=== PATIENT | female | born 1945 | race Caucasian/White ===

== ENCOUNTER 2016-08-01 13:40 | Day surgery (SDC) | payer MEDICARE ==
[~2016-08-01 13:40] MED LIST: CEFAZOLIN 2 Gram 2 GM/50 ML BAG IVPB ONE
[2016-08-01 13:55] LABS: BASO % 0.3 % (0-6); GRAN % 63.5 % (47-80); HEMATOCRIT 42.5 % (35.0-47.0); HEMOGLOBIN 13.8 gm/dl (11.6-16.0); LYMPH % 23.5 % (16-45); MEAN CORPUSCULAR HEMOGLOBIN 29.6 pg (27-33); MEAN CORPUSCULAR HGB CONC 32.5 g/dl (32-36); MEAN PLATELET VOLUME 9.3 fl (7.4-10.4); MONO % 9.7 % (0-9); PLATELET COUNT 217 K/uL (130-400); RED BLOOD COUNT 4.67 M/uL (3.80-5.40); RED CELL DISTRIBUTION WIDTH 12.6 % (11.5-14.5); WHITE BLOOD COUNT W/O DIFF 6.7 K/uL (4.2-12.2)
[2016-08-01] MEDS ORDERED: ONDANSETRON HCL IV 4 MG/2 ML VIAL IVP ONE (14:00)
[2016-08-01] MEDS ORDERED: PROPOFOL 10 MG/ML VIAL IV ONE (14:00)
[2016-08-01 14:17] LABS: ANION GAP 4.6 (7-16); BLOOD UREA NITROGEN 17 mg/dL (7-17); CARBON DIOXIDE 29.4 mmol/L (22-30); CREATININE 0.7 mg/dL (0.52-1.04); EST GLOMERULAR FILTRATION RATE > 60 ml/min; GLUCOSE,RANDOM 107 mg/dL (70-110)
--- NOTE | 2016-08-03 08:30 | Operative Note ---
DATE OF SURGERY: 08/01/2016. 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 POSTOPERATIVE DIAGNOSIS: Bladder tumor of the dome. OPERATION: Cystoscopy and transurethral resection of bladder tumor 1 cm. Anesthesia: General. Indication: A 71-year-old female who was found to have a bladder tumor at the dome of the bladder on recent cystoscopy. As such, she presents for further management with removal of the tumor today. We discussed the potential risks of infection, bleeding, bladder perforation, recurrence of tumors, and iatrogenic injury. She understands all the above and wished to proceed. PROCEDURE: Preop informed consent was obtained. Antibiotics were given. Sedation was administered. The patient was brought to the operating room and given general anesthetic, carefully placed in lithotomy position with the genitalia prepped and draped sterilely. Visual inspection of the introitus shows that she has significant rectocele. There is mild cystocele formation. Bladder was entered and inspected systematically. Ureteral orifices were normal in appearance and position. There is a roughly 1 cm papillary bladder tumor seen at the dome of the bladder, and this was then removed carefully with the resectoscope, and the tumor was passed off the field for pathology. Careful cautery was then used to achieve excellent hemostasis. The entire tumor bed was then controlled, and the bladder was then irrigated out several times. Urine was completely clear at the end of the procedure, and she was awakened and transferred to recovery in stable condition. DISCHARGE INSTRUCTIONS: Follow up in the office to review pathology results in 2 weeks. Faheem Gibbons M.D. CC: Magdalene Page MD [facility]
== END 2016-08-01 17:51 | disposition home or self-care (01) ==
LOC: SUR 13:40
PROVIDERS: ATTEND Urology
DX: D49.4 Neoplasm of unspecified behavior of bladder (principal); I10 Essential (primary) hypertension
CPT/HCPCS: 80048; 85025; J2405

== ENCOUNTER 2016-11-14 13:06 | Day surgery (SDC) | payer MEDICARE ==
--- NOTE | 2016-11-21 14:10 | Operative Note ---
DATE OF SURGERY: 11/14/2016 PREOPERATIVE DIAGNOSIS: Bladder cancer. POSTOPERATIVE DIAGNOSIS: Bladder cancer. Surgeon: Faheem Gibbons MD GYROSCOPIC INSTRUMENT TESTER: None. Indication: A 71-year-old female who presents for her second 3-month surveillance for bladder cancer. PROCEDURE: Preop informed consent was obtained. Antibiotics were given. The patient was brought to the procedure room at [facility], placed supine in frog-leg position with the genitalia prepped and draped sterilely. Flexible cystoscopy was performed. Urethra appears unremarkable. The bladder was entered and inspected systematically. No abnormality was seen. No tumors visualized and both ureteral orifices had normal appearance and positioning. Each effluxing clear urine. The scope was then removed. The procedure was then terminated. The patient tolerated the procedure well. PLAN: The patient will follow up for her third 3-month surveillance. CC: Dr. Camilo SHEPARD
== END 2016-11-14 13:56 | disposition home or self-care (01) ==
LOC: HOP 13:06
PROVIDERS: ATTEND Urology
DX: Z08 Encounter for follow-up examination after completed treatment for malignant neoplasm (principal); Z85.51 Personal history of malignant neoplasm of bladder

== ENCOUNTER 2017-01-11 14:18 | Inpatient (IN) | payer MEDICARE ==
[2017-01-11] MEDS ORDERED: ASPIRIN 81 MG CHEWABLE TABLET PO ONE (14:37)
[2017-01-11] MEDS ORDERED: NITROGLYCERIN 0.4MG SL TABLET #25 BTL SL PRN (14:37)
[2017-01-11 14:52] LABS: BASO % 0.2 % (0-6); EOS % 3.6 % (0-6); GRAN % 62.2 % (47-80); HEMATOCRIT 41.2 % (35.0-47.0); HEMOGLOBIN 13.9 gm/dl (11.6-16.0); LYMPH % 25.4 % (16-45); MEAN CELL VOLUME 90.9 fl (81-97); MEAN CORPUSCULAR HEMOGLOBIN 30.7 pg (27-33); MEAN CORPUSCULAR HGB CONC 33.7 g/dl (32-36); MEAN PLATELET VOLUME 9.8 fl (7.4-10.4); MONO % 8.6 % (0-9); PLATELET COUNT 192 K/uL (130-400); RED BLOOD COUNT 4.53 M/uL (3.80-5.40); RED CELL DISTRIBUTION WIDTH 12.8 % (11.5-14.5); WHITE BLOOD COUNT W/O DIFF 6.1 K/uL (4.2-12.2)
[2017-01-11 15:23] LABS: ALB/GLOB RATIO 1.4 (1.1-1.8); ALBUMIN 4.3 g/dL (4.0-5.0); ALKALINE PHOSPHATASE 83 U/L (35-104); ALT/SGPT 33 U/L (<33); AST/SGOT 26 U/L (10.0-35.0); BLOOD UREA NITROGEN 13 mg/dL (8-23); CKMB 10.5 ng/mL (<3.77); CREATININE 0.6 mg/dL (0.5-0.9); EST GLOMERULAR FILTRATION RATE > 60 mL/min; GLUCOSE,RANDOM 267 mg/dL (74-109); NTpro B-NATRIURETIC PEPTIDE 26.01 pg/mL (<125); TOTAL PROTEIN 7.4 g/dL (6.6-8.7)
[2017-01-11 15:27] LABS: CREATINE PHOSPHOKINASE 208 U/L (26-192)
--- NOTE | 2017-01-11 16:13 | Emergency Department Record ---
History of Present Illness - General Chief Complaint: Chest Pain Stated Complaint: CHEST PAIN Time Seen by Provider: 01/11/17 14:19 Source: Patient Mode of Arrival: Wheelchair Limitations: No limitations - History of Present Illness Initial Comments: pt was brought over from [facility] because she has cp. she had had a bad cold she states but over the last 2 days she has developed chest pressure that is fairly constant. she has no nausea or sweating. Onset/Timin -: Days(s) Onset: Awoke with symptoms Pain Location: Substernal Pain Radiation: Back Quality: Other Consistency: Constant Improves With: Nothing Worsens With: Nothing Treatments Prior to Arrival: None - Related Data Home Medications Medication Instructions Recorded Confirmed Last Taken Atorvastatin Calcium [Lipitor] 40 mg PO QHS 01/11/17 01/11/17 Unknown Lisinopril [Zestril] 5 mg PO DAILY 01/11/17 01/11/17 Unknown Allergies Allergy/AdvReac Type Severity Reaction Status Date / Time No Known Drug Allergies Allergy Unverified 01/11/17 13:52 Travel Screening - Travel/Exposure Within Last 30 Days Have you traveled within the last 30 days?: No - Travel/Exposure Within Last Year Have you traveled outside the [place] in the last year?: No - Additonal Travel Details Have you been exposed to anyone with a communicable illness?: No - Travel Symptoms Symptom Screening: None Review of Systems Reviewed: No additional complaints except as noted below Constitutional: Reports: As per HPI. Denies: Chills, Fever, Malaise, Night sweats, Weakness, Weight change Eyes: Reports: As per HPI. Denies: Eye discharge, Eye pain, Photophobia, Vision change ENT: Reports: As per HPI. Denies: Congestion, Dental pain, Ear pain, Epistaxis , Hearing loss, Throat pain Respiratory: Reports: As per HPI. Denies: Cough, Dyspnea, Hemoptysis, Stridor, Wheezes Cardiovascular: Reports: As per HPI. Denies: Arrhythmia, Chest pain, Dyspnea on exertion, Edema, Murmurs, Orthopnea, Palpitations, Paroxysmal nocturnal dyspnea, Rheumatic Fever, Syncope Endocrine: Reports: As per HPI. Denies: Fatigue, Heat or cold intolerance, Polydipsia, Polyuria Gastrointestinal: Reports: As per HPI. Denies: Abdominal pain, Constipation, Diarrhea, Hematemesis, Hematochezia, Melena, Nausea, Vomiting Genitourinary: Reports: As per HPI. Denies: Abnormal menses, Discharge, Dyspareunia, Dysuria, Frequency, Hematuria, Incontinence, Retention, Urgency Musculoskeletal: Reports: As per HPI. Denies: Arthralgia, Back pain, Gout, Joint swelling, Myalgia, Neck pain Skin: Reports: As per HPI. Denies: Bruising, Change in color, Change in hair/ nails, Lesions, Pruritus, Rash Neurological: Reports: As per HPI. Denies: Abnormal gait, Confusion, Headache, Numbness, Paresthesias, Seizure, Tingling, Tremors, Vertigo, Weakness Psychiatric: Reports: As per HPI. Denies: Anxiety, Auditory hallucinations, Depression, Homicidal thoughts, Suicidal thoughts, Visual hallucinations Hematological/Lymphatic: Reports: As per HPI. Denies: Anemia, Blood Clots, Easy bleeding, Easy bruising, Swollen glands Past Medical History - SOCIAL HISTORY Smoking Status: Never smoker Alcohol Use: None Drug Use: None - RESPIRATORY Hx Respiratory Disorders: Yes Hx Sleep Apnea: Yes Hx of CPAP: Yes - CARDIOVASCULAR Hx Cardio Disorders: Yes Comment:: high cholesterol - NEURO Hx Neuro Disorders: No - GI Hx GI Disorders: Yes Hx Abdominal Pain: Yes Hx Irritable Bowel: Yes - Hx Genitourinary Disorders: Yes Hx Bladder Problem: Yes (tumor) - ENDOCRINE Hx Endocrine Disorders: Yes Hx Diabetes: Yes (pre-diabetic) Hx Thyroid Disease: No Comment:: diet and exercise - MUSCULOSKELETAL Hx Musculoskeletal Disorders: Yes Hx Arthritis: Yes - PSYCH Hx Psych Problems: No - HEMATOLOGY/ONCOLOGY Hx Hematology/Oncology Disorders: Yes Hx Cancer: Yes (bladder maybe) Family Medical History Any Significant Family History?: No Hx Heart Disease: Father, Mother Physical Exam - General General Appearance: Alert, Oriented x3, Cooperative, Mild distress - Head Head exam: Normal inspection - Eye Eye exam: Normal appearance, PERRL, EOMI Pupils: Normal accommodation - ENT ENT exam: Normal exam, Mucous membranes moist, Normal external ear exam, Normal orophraynx Ear exam: Normal external inspection. negative: External canal tenderness Nasal Exam: Normal inspection. negative: Discharge, Sinus tenderness Mouth exam: Normal external inspection, Tongue normal Teeth exam: Normal inspection. negative: Dental caries Throat exam: Normal inspection. negative: Tonsillar erythema, Tonsillar exudate - Neck Neck exam: Normal inspection, Full ROM. negative: Tenderness - Respiratory Respiratory exam: Normal lung sounds bilaterally. negative: Respiratory distress - Cardiovascular Cardiovascular Exam: Regular rate, Normal rhythm, Normal heart sounds - GI/Abdominal GI/Abdominal exam: Soft, Normal bowel sounds. negative: Tenderness - Rectal Rectal exam: Deferred - exam: Deferred - Extremities Extremities exam: Normal inspection, Full ROM, Normal capillary refill. negative: Tenderness - Back Back exam: Reports: Normal inspection, Full ROM. Denies: Muscle spasm, Rash noted, Tenderness - Neurological Neurological exam: Alert, CN II-XII intact, Normal gait, Oriented X3 - Psychiatric Psychiatric exam: Normal affect, Normal mood - Skin Skin exam: Dry, Intact, Normal color, Warm Course Vital Signs 01/11/17 01/11/17 01/11/17 14:19 14:43 15:00 Temperature 98.9 F Pulse Rate 64 Pulse Rate [ 60 63 Pulse Ox Probe] Respiratory 16 16 16 Rate Blood Pressure 181/86 Blood Pressure 137/92 111/76 [Right Arm] Pulse Ox 96 99 100 01/11/17 01/11/17 15:07 15:14 Temperature Pulse Rate Pulse Rate [ 70 93 H Pulse Ox Probe] Respiratory 16 16 Rate Blood Pressure Blood Pressure 121/69 137/92 [Right Arm] Pulse Ox 100 100 Medical Decision Making - Lab Data Result diagrams: 01/11/17 14:41 01/11/17 14:41 Lab Results 01/11/17 01/11/17 01/11/17 Range/Units 14:41 14:41 14:41 WBC 6.1 (4.2-12.2) K/uL RBC 4.53 (3.80-5.40) M/uL Hgb 13.9 (11.6-16.0) gm/dl Hct 41.2 (35.0-47.0) % MCV 90.9 (81-97) fl MCH 30.7 (27-33) pg MCHC 33.7 (32-36) g/dl RDW 12.8 (11.5-14.5) % Plt Count 192 (130-400) K/uL MPV 9.8 (7.4-10.4) fl Gran % 62.2 (47-80) % Lymphocytes % 25.4 (16-45) % Monocytes % 8.6 (0-9) % Eosinophils % 3.6 (0-6) % Basophils % 0.2 (0-6) % D-Dimer 1.11 H (0-0.59) mg/L FEU Sodium 138 (136-145) mmol/L Potassium 4.0 (3.4-4.5) mmol/L Chloride 96 L (98-107) mmol/L Carbon Dioxide 28.0 (22-29) mmol/L Anion Gap 14.0 (7-16) BUN 13 (8-23) mg/dL Creatinine 0.6 (0.5-0.9) mg/dL Estimated GFR > 60 mL/min Random Glucose 267 H (74-109) mg/dL Calcium 9.6 (8.8-10.2) mg/dL Total Bilirubin 0.30 (0.2-1.0) mg/dL AST 26 (10.0-35.0) U/L ALT 33 (<33) U/L Alkaline Phosphatase 83 (35-104) U/L Creatine Kinase 208 H (26-192) U/L CK-MB (CK-2) 10.5 H (<3.77) ng/mL CK-MB (CK-2) Rel Index 5.00 H (0-4) % Troponin T < 0.010 (0-0.010) ng/mL NT-Pro-B Natriuret Pep 26.01 (<125) pg/mL Total Protein 7.4 (6.6-8.7) g/dL Albumin 4.3 (4.0-5.0) g/dL Globulin 3.1 (1.4-4.8) gm/dL Albumin/Globulin Ratio 1.4 (1.1-1.8) 01/11/17 Range/Units 14:41 WBC (4.2-12.2) K/uL RBC (3.80-5.40) M/uL Hgb (11.6-16.0) gm/dl Hct (35.0-47.0) % MCV (81-97) fl MCH (27-33) pg MCHC (32-36) g/dl RDW (11.5-14.5) % Plt Count (130-400) K/uL MPV (7.4-10.4) fl Gran % (47-80) % Lymphocytes % (16-45) % Monocytes % (0-9) % Eosinophils % (0-6) % Basophils % (0-6) % D-Dimer (0-0.59) mg/L FEU Sodium (136-145) mmol/L Potassium (3.4-4.5) mmol/L Chloride (98-107) mmol/L Carbon Dioxide (22-29) mmol/L Anion Gap (7-16) BUN (8-23) mg/dL Creatinine (0.5-0.9) mg/dL Estimated GFR mL/min Random Glucose (74-109) mg/dL Calcium (8.8-10.2) mg/dL Total Bilirubin (0.2-1.0) mg/dL AST (10.0-35.0) U/L ALT (<33) U/L Alkaline Phosphatase (35-104) U/L Creatine Kinase Cancelled (26-192) U/L CK-MB (CK-2) (<3.77) ng/mL CK-MB (CK-2) Rel Index (0-4) % Troponin T (0-0.010) ng/mL NT-Pro-B Natriuret Pep (<125) pg/mL Total Protein (6.6-8.7) g/dL Albumin (4.0-5.0) g/dL Globulin (1.4-4.8) gm/dL Albumin/Globulin Ratio (1.1-1.8) Disposition Disposition: Admit Clinical Impression: Pulmonary embolism Qualifiers: Pulmonary embolism type: other Chronicity: acute Acute cor pulmonale presence: without acute cor pulmonale Qualified Code(s): I26.99 - Other pulmonary embolism without acute cor pulmonale Disposition: Still a Patient at [facility] Decision to Admit: Admit from ER Decision to Admit Date: 01/11/17 Decision to Admit Time: 17:46 Forms: Patient Portal Access Quality - Quality Measures Quality Measures: N/A - Blood Pressure Screening Does Patient Have Any of the Following: No Blood Pressure Classification: Pre-Hypertensive BP Reading Systolic Measurement: 181 Diastolic Measurement: 86 Screening for High Blood Pressure: < Pre-Hypertensive BP, F/U Documented > [ [id number]] Pre-Hypertensive Follow-up Interventions: Follow-up with rescreen every year.
[2017-01-11] MEDS ORDERED: HEPARIN SODIUM 1000 UNIT/1 ML 10ML VIAL IVP ONE (17:11)
[2017-01-11] MEDS ORDERED: HEPARIN SODIUM/D5W 25,000 UNITS/500 ML BAG IV SCH (17:15)
[2017-01-11 17:24] LABS: INR 1.01; PARTIAL THROMBOPLASTIN TIME 23.3 SECONDS (24.5-39.1); PROTHROMBIN TIME (PATIENT) 10.9 SECONDS (9.5-12.1)
[2017-01-11] MEDS ORDERED: ENOXAPARIN 100 MG/ML SYR SQ ONE (17:26)
[2017-01-11] MEDS ORDERED: ACETAMINOPHEN 500 MG TABLET PO PRN (19:13)
[2017-01-11] MEDS ORDERED: ALBUTEROL HFA 8 GM INHALER INH PRN (19:13)
[2017-01-11] MEDS ORDERED: FLU VAC QS 2017-18 (INPT, 6MO+) 60MCG/0.5ML IM ONE (19:14)
[2017-01-11] MEDS: ATORVASTATIN 20 MG TABLET PO SCH (22:02)
[2017-01-11] MEDS: LISINOPRIL 5 MG TABLET PO SCH (22:05)
--- NOTE | 2017-01-12 07:07 | History & Physical ---
History of Present Illness - Date of Service Date of Service for History & Physical: 01/12/17 - History of Present Illness Admitting Diagnosis: PE History of Present Illness: Mrs. Moss 72 y/o who presents to ED with cough and progressive shortness of breath about 1 week ago. She came in to [facility] ED and was given respiratory therapy and a z-amanda which she says improved symptoms somewhat. She then began to notice some progression of symptoms with intermittent chest pain , and transient sharp pain of the right lower back over the past day. She denies having fever, chills, nausea, vomiting, recent travel or immobility. The patient has had cystoscopy recently with removal of a small neoplasm of the bladder but says that it was benign and is not on any active chemo/ radiotherapy. She does not report any history of clots or family history of hypercoaguability. On presentation to the ED the patient was noted to be mildly bradycardic and with minimal respiratory distress. ECG did not show any evidence of right heart strain. Troponins were negative and chest xray showed no acute abnormalities. D- dimer was elevated at 1.1 which prompted CTPE protocol. CTA identified and single foci embolus in the right lower lung lobe. The patient was started on Lovenox 100mg Q12H and admitted for further observation. Travel Screening - Travel/Exposure Within Last 30 Days Have you traveled within the last 30 days?: No - Travel/Exposure Within Last Year Have you traveled outside the [place] in the last year?: No - Additonal Travel Details Have you been exposed to anyone with a communicable illness?: No - Travel Symptoms Symptom Screening: None Review of Systems Constitutional: Reports: As per HPI. Denies: Chills, Fever, Malaise, Night sweats, Weakness, Weight change Eyes: Reports: As per HPI. Denies: Eye discharge, Eye pain, Photophobia, Vision change ENT: Reports: As per HPI. Denies: Congestion, Dental pain, Ear pain, Epistaxis , Hearing loss, Throat pain Respiratory: Reports: As per HPI, Cough. Denies: Dyspnea, Hemoptysis, Stridor, Wheezes Cardiovascular: Reports: As per HPI. Denies: Arrhythmia, Chest pain, Dyspnea on exertion, Edema, Murmurs, Orthopnea, Palpitations, Paroxysmal nocturnal dyspnea, Rheumatic Fever, Syncope Endocrine: Reports: As per HPI. Denies: Fatigue, Heat or cold intolerance, Polydipsia, Polyuria Gastrointestinal: Reports: As per HPI. Denies: Abdominal pain, Constipation, Diarrhea, Hematemesis, Hematochezia, Melena, Nausea, Vomiting Genitourinary: Reports: As per HPI. Denies: Abnormal menses, Discharge, Dyspareunia, Dysuria, Frequency, Hematuria, Incontinence, Retention, Urgency Musculoskeletal: Reports: As per HPI. Denies: Arthralgia, Back pain, Gout, Joint swelling, Myalgia, Neck pain Skin: Reports: As per HPI. Denies: Bruising, Change in color, Change in hair/ nails, Lesions, Pruritus, Rash Neurological: Reports: As per HPI. Denies: Abnormal gait, Confusion, Headache, Numbness, Paresthesias, Seizure, Tingling, Tremors, Vertigo, Weakness Psychiatric: Reports: As per HPI. Denies: Anxiety, Auditory hallucinations, Depression, Homicidal thoughts, Suicidal thoughts, Visual hallucinations Hematological/Lymphatic: Reports: As per HPI. Denies: Anemia, Blood Clots, Easy bleeding, Easy bruising, Swollen glands Past Medical History - SOCIAL HISTORY Smoking Status: Never smoker Alcohol Use: None Drug Use: None - RESPIRATORY Hx Respiratory Disorders: Yes Hx Sleep Apnea: Yes Hx of CPAP: Yes - CARDIOVASCULAR Hx Cardio Disorders: Yes Hx Hypertension: Yes Comment:: high cholesterol - NEURO Hx Neuro Disorders: No - GI Hx GI Disorders: Yes Hx Abdominal Pain: Yes Hx Irritable Bowel: Yes - Hx Genitourinary Disorders: Yes Hx Bladder Problem: Yes (tumor) - ENDOCRINE Hx Endocrine Disorders: Yes Hx Diabetes: Yes (pre-diabetic) Hx Thyroid Disease: No Comment:: diet and exercise - MUSCULOSKELETAL Hx Musculoskeletal Disorders: Yes Hx Arthritis: Yes (primarily hands) - PSYCH Hx Psych Problems: No - HEMATOLOGY/ONCOLOGY Hx Hematology/Oncology Disorders: No Family Medical History Any Significant Family History?: No Hx Heart Disease: Father, Mother H&P Meds/Allergies - Allergies Allergies: Allergies Allergy/AdvReac Type Severity Reaction Status Date / Time No Known Drug Allergies Allergy Unverified 01/11/17 13:52 - Home Medications Home Medications Medication Instructions Recorded Confirmed Last Taken Atorvastatin Calcium [Lipitor] 40 mg PO QHS 01/11/17 01/11/17 Unknown Lisinopril [Zestril] 5 mg PO DAILY 01/11/17 01/11/17 Unknown - Active Medications Active Medications: Current Medications Acetaminophen (Tylenol 500mg Tab) 1,000 mg PO Q6H PRN PRN Reason: PAIN/TEMP Albuterol Sulfate (Ventolin Hfa) 2 puff INH Q4H PRN PRN Reason: Cough and Difficulty Breathing Atorvastatin Calcium (Lipitor) 40 mg PO QHS [facility] Last Admin: 01/11/17 22:02 Dose: 40 mg Enoxaparin Sodium (Lovenox) 100 mg SQ Q12H [facility] Lisinopril (Zestril) 5 mg PO DAILY [facility] Last Admin: 01/11/17 22:05 Dose: 5 mg Physical Exam - Vital Signs Vital Signs: Vital Signs - Last 24 Hrs Temp Pulse Resp BP Pulse Ox 01/12/17 06:00 99.0 F 56 L 18 130/66 95 01/12/17 02:00 97.9 F 52 L 16 95/52 95 01/11/17 22:00 98.2 F 63 18 173/89 94 L - General General Appearance: Alert, Oriented x3, Cooperative, Mild distress Limitations: No limitations - Head Head exam: Normal inspection - Eye Eye exam: Normal appearance, PERRL, EOMI Pupils: Normal accommodation - ENT ENT exam: Normal exam, Mucous membranes moist, Normal external ear exam, Normal orophraynx Ear exam: Normal external inspection. negative: External canal tenderness Nasal Exam: Normal inspection. negative: Discharge, Sinus tenderness Mouth exam: Normal external inspection, Tongue normal Teeth exam: Normal inspection. negative: Dental caries Throat exam: Normal inspection. negative: Tonsillar erythema, Tonsillar exudate - Neck Neck exam: Normal inspection, Full ROM. negative: Tenderness - Respiratory Respiratory exam: Normal lung sounds bilaterally. negative: Accessory muscle use, Chest wall tenderness, Decreased breath sounds, Prolonged expiratory, Respiratory distress, Wheezes - Cardiovascular Cardiovascular Exam: Regular rate, Normal rhythm, Normal heart sounds. negative : Diastolic murmur, Irregular rhythm Peripheral Pulses: 3+: Radial (R), Radial (L), Dorsalis Pedis (R), Dorsalis Pedis (L) - GI/Abdominal GI/Abdominal exam: Soft, Normal bowel sounds. negative: Tenderness - Rectal Rectal exam: Deferred - exam: Deferred - Extremities Extremities exam: Normal inspection, Full ROM, Normal capillary refill. negative: Calf tenderness, Pedal edema, Tenderness - Back Back exam: Reports: Normal inspection, Full ROM. Denies: Muscle spasm, Rash noted, Tenderness - Neurological Neurological exam: Alert, CN II-XII intact, Normal gait, Oriented X3 - Psychiatric Psychiatric exam: Normal affect, Normal mood - Skin Skin exam: Dry, Intact, Normal color, Warm Results - Labs Result Diagrams: 01/11/17 14:41 01/11/17 14:41 Labs Last 24 Hours: Laboratory Results - last 24 hr 01/11/17 21:25 Troponin T < 0.010 VTE H&P Assessment - Risk for VTE Risk for VTE: Yes Risk Level: High Risk Assessment Date: 01/12/17 Risk Assessment Time: 09:47 VTE Orders Placed or Will Be Placed: Yes - VTE Confirmation VTE Confirmed w/Diagnostic Imaging Test: Yes (RLL PE ) Plan - Inpatient Certification Inpatient Certification: Admit to inpatient care: Based on my medical assessment, after consideration of patient's risk factors (age, co-morbidities and patient presenting symptoms and acuity), I expect that this patient will remain in the hospital greater than or equal to two midnights and that the services needed warrant inpatient care because: Patient Risk Factors: PE, GI bleed I certify that my determination is in accordance with my understanding of Medicare requirements for reasonable and necessary inpatient services. - Detailed Diagnosis and Plan (1) PE (pulmonary thromboembolism) Plan: Wells Criteria score - 3, intermediate risk. D-dimer 1.1, CTPE + for RLL PE. ECG - negative for strain, trops negative x 2 - started on Lovenox 100mg Q12H, to bridge to Coumadin w/ therapeutic INR 2-3 pharmacy to dose. - oxygen to maintain saturations > 92%, pt reports 1 bloody bowel bowel movement this morning. Monitor for any further GI bleed. 2D echo ordered. - I discussed thoroughly the risk/benefits of anticoagulation with the patient. She denies any history of falls, easy bruising or GI bleeding. - pharmacy discussed diet change and medication dosing on coumadin therapy. Current Visit: Yes Status: Acute Base Code: I26.99 - OTHER PULMONARY EMBOLISM WITHOUT ACUTE COR PULMONALE Comment: Wells Criteria score - 3, intermediate risk. D-dimer 1.1, CTPE + for RLL PE. ECG - negative for strain, trops negative x 2 - started on Lovenox 100mg Q12H, to bridge to Coumadin w/ therapeutic INR 2-3 pharmacy to dose. - oxygen to maintain saturations > 92%, pt reports 1 bloody bowel bowel movement this morning. Monitor for any further GI bleed. - I discussed thoroughly the risk/benefits of anticoagulation with the patient. She denies any history of falls, easy bruising or GI bleeding. 01/12/17 10:06 (2) Pre-diabetes Plan: - Hba1c, 2015 - 6.3, random serum glucose 267 - Patient diet controlled, not any medications. - Cont Lisinopril 5mg QD and Atorvastatin 40mg QHS - ordered lipid panel and Hba1c. Current Visit: Yes Status: Acute Base Code: R73.03 - PREDIABETES Comment: - Hba1c, 2015 - 6.3, random serum glucose 267 - Patient diet controlled, not any medications. - Cont Lisinopril 5mg QD and Atorvastatin 40mg QHS - ordered lipid panel and Hba1c. (3) Full code status Plan: FULL CODE Current Visit: Yes Status: Acute Base Code: Z78.9 - OTHER SPECIFIED HEALTH STATUS - Disposition D/C tomorrow after starting Warfarin today. Pt reports blood in stool this am.
--- NOTE | 2017-01-12 07:29 | RADIOLOGY REPORT ---
EXAM: CHEST, TWO VIEWS HISTORY: ACUTE CHEST HEAVINESS. NONPRODUCTIVE COUGH. TECHNIQUE: Two views of the chest were obtained. Comparison: Chest x-ray 01/22/14. FINDINGS: The lungs are clear. The cardiac silhouette is borderline prominent. The diaphragm and osseous structures are unremarkable for age. IMPRESSION: NO ACUTE INTRATHORACIC PROCESS WITH NO CHANGE. JOB NUMBER: [id number] MTDD
--- NOTE | 2017-01-12 07:38 | CT ANGIOGRAM REPORT ---
EXAM: CHEST CTA FOR PE WITH POST PROCESSING HISTORY: CHEST PAIN, CHEST HEAVINESS, ELEVATED D-DIMER, POSSIBLE PULMONARY EMBOLUS. TECHNIQUE: CTA of the chest was performed following the intravenous administration of 90 ml of Omnipaque 350 as the IV contrast. Post processing on an independent workstation was performed with multiple 3D MIP series obtained. Comparison: No prior chest CT. Comparison is made with the two view chest x- ray also obtained on 01/11/17 today. FINDINGS: There is a very small amount of PE in the right lower lobe. This is seen on images 161 through 168 of 289. Elsewhere no PE identified. No thoracic aortic aneurysm or dissection is seen. There is a small hiatal hernia present. Calcified mediastinal nodes are seen consistent with old granulomatous disease. There is some coronary artery calcification present. No pleural or pericardial effusion evident. Diffuse fatty infiltration of the visualized liver. There is both a retroaortic and preaortic left renal vein, a developmental variant. No pneumothorax is evident. There is a small calcified granuloma in the subpleural location of the left mid lung posteriorly. There is prominent spurring throughout the thoracic and visualized lumbar spine with very exuberant spurring posteriorly at the T12-L1 interspace on the right likely impinging on the cord at this level. IMPRESSION: 1. THERE IS A SINGLE PERIPHERAL FOCUS OF PE IN THE RIGHT LOWER LOBE POSTERIORLY AND INFERIORLY. ELSEWHERE NO PE IDENTIFIED. 2. CALCIFIED GRANULOMA LEFT MID LUNG POSTERIORLY AND CALCIFIED MEDIASTINAL LYMPH NODES CONSISTENT WITH OLD GRANULOMATOUS DISEASE. 3. SMALL HIATAL HERNIA. 4. SOME CORONARY ARTERY CALCIFICATION. 5. DIFFUSE FATTY INFILTRATION OF THE LIVER. 6. EXUBERANT HYPERTROPHIC SPURRING IN THE SPINE WITH SOME PROMINENT POSTERIOR SPURRING ON THE RIGHT LIKELY IMPINGING ON THE CORD AT THE LEVEL OF THE T12-L1 INTERSPACE. JOB NUMBER: [id number] [facility]
[2017-01-12] MEDS: ENOXAPARIN 100 MG/ML SYR SQ SCH ×2 (07:56→17:40)
[2017-01-12] MEDS: LISINOPRIL 5 MG TABLET PO SCH (09:05)
[2017-01-12] MEDS: ATORVASTATIN 20 MG TABLET PO SCH (21:18)
[2017-01-12] MEDS ORDERED: WARFARIN 5 MG TAB PO SCH (22:00)
[2017-01-13] MEDS: ENOXAPARIN 100 MG/ML SYR SQ SCH (06:10)
[2017-01-13 06:12] LABS: INR 1.04; PROTHROMBIN TIME (PATIENT) 11.2 SECONDS (9.5-12.1)
[2017-01-13] MEDS ORDERED: PNEUM 13-VAL/PF 0.5 ML IM ONE (09:03)
--- NOTE | 2017-01-13 09:57 | Discharge Summary ---
Providers Discharge Summary Date: 01/13/17 Date of admission: 01/11/17 18:49 Expected Date of Discharge: 01/13/17 Attending physician: Checo George Primary care physician: ROMEO CHAVEZ Physical Exam - Vital Signs Vital Signs: Vital Signs - Last 24 Hrs Temp Pulse Resp BP Pulse Ox 01/13/17 05:49 98.9 F 57 L 18 120/75 93 L 01/13/17 02:00 97.9 F 52 L 16 117/62 97 01/12/17 22:00 99.0 F 55 L 16 117/58 96 01/12/17 21:00 16 01/12/17 18:00 97.9 F 63 133/64 95 01/12/17 13:51 99.3 F 70 103/75 95 01/12/17 10:00 99 F 71 16 139/71 93 L - General General Appearance: Alert, Oriented x3, Cooperative, Mild distress Limitations: No limitations - Head Head exam: Normal inspection - Eye Eye exam: Normal appearance, PERRL, EOMI Pupils: Normal accommodation - ENT ENT exam: Normal exam, Mucous membranes moist, Normal external ear exam, Normal orophraynx Ear exam: Normal external inspection. negative: External canal tenderness Nasal Exam: Normal inspection. negative: Discharge, Sinus tenderness Mouth exam: Normal external inspection, Tongue normal Teeth exam: Normal inspection. negative: Dental caries Throat exam: Normal inspection. negative: Tonsillar erythema, Tonsillar exudate - Neck Neck exam: Normal inspection, Full ROM. negative: Tenderness - Respiratory Respiratory exam: Normal lung sounds bilaterally. negative: Accessory muscle use, Chest wall tenderness, Decreased breath sounds, Prolonged expiratory, Respiratory distress, Wheezes - Cardiovascular Cardiovascular Exam: Regular rate, Normal rhythm, Normal heart sounds. negative : Diastolic murmur, Irregular rhythm Peripheral Pulses: 3+: Radial (R), Radial (L), Dorsalis Pedis (R), Dorsalis Pedis (L) - GI/Abdominal GI/Abdominal exam: Soft, Normal bowel sounds. negative: Tenderness - Rectal Rectal exam: Deferred - exam: Deferred - Extremities Extremities exam: Normal inspection, Full ROM, Normal capillary refill. negative: Calf tenderness, Pedal edema, Tenderness - Back Back exam: Reports: Normal inspection, Full ROM. Denies: Muscle spasm, Rash noted, Tenderness - Neurological Neurological exam: Alert, CN II-XII intact, Normal gait, Oriented X3 - Psychiatric Psychiatric exam: Normal affect, Normal mood - Skin Skin exam: Dry, Intact, Normal color, Warm Hospitalization - Hospitalization Admission Diagnosis: PE - Problem List/Discharge Diagnosis (1) PE (pulmonary thromboembolism) Status: Acute Base Code: I26.99 - OTHER PULMONARY EMBOLISM WITHOUT ACUTE COR PULMONALE Comment: Wells Criteria score - 3, intermediate risk. D-dimer 1.1, CTPE + for RLL PE. ECG - negative for strain, trops negative x 2 - started on Lovenox 100mg Q12H, to bridge to Coumadin w/ therapeutic INR 2-3 pharmacy to dose. - O2 on RA prior to discharge 96% - no further blood stools. Does admit to mild constipation at home and advised a daily stool softener - I discussed thoroughly the risk/benefits of anticoagulation with the patient. She denies any history of falls, easy bruising or GI bleeding - will discharge on 3 days Lovenox while bridging on Coumadin. Nursing has completed injection education as well as bleeding symptoms to alert to return to ED - stable for discharge 01/13/17 10:00 (2) Pre-diabetes Status: Acute Base Code: R73.03 - PREDIABETES Comment: - Hba1c, 2016 - 6.3, random serum glucose 267 - Patient diet controlled, not any medications. - Cont Lisinopril 5mg QD and Atorvastatin 40mg QHS - Lipid panel prior to discharge with triglycerides 1171, total cholesterl 246 , LDL 103 - A1C prior to discharge 8.7 - will initate Metformin 500mg BID with target dosing of 1000mg BID - patient notes she does not always take Lisinopril or Atrovostatin on daily basis- she was advised of importance of taking these medications daily without fail and also advised to begin fish oil 1,000mg BID with a decrease in dietary carbs and simple sugars (3) Pulmonary embolism Status: Acute Discharge Diagnosis: Pulmonary embolism type: other Chronicity: acute Acute cor pulmonale presence: without acute cor pulmonale Qualified Code(s): I26.99 - Other pulmonary embolism without acute cor pulmonale Base Code: I26.99 - OTHER PULMONARY EMBOLISM WITHOUT ACUTE COR PULMONALE (4) Full code status Status: Acute Base Code: Z78.9 - OTHER SPECIFIED HEALTH STATUS - Hospitalization Course Disposition: Home, Self-Care Procedures: Cardiology Procedures 01/12/17 09:07 Echo W/CF & Cardiac Doppler NOW Abnormal Labs: Abnormal Lab Results 01/12/17 01/12/17 Range/Units 10:05 10:05 Hemoglobin A1c 8.70 H (4.0-6.00) % Triglycerides 1171 H (<150) mg/dL Cholesterol 246 H (<200) mg/dL LDL Cholesterol Measurd 103.0 H (0-100) mg/dL HDL Cholesterol 24 L (40-60) mg/dL Condition at Discharge: (1) Good Discharge Medications - Discharge Medications Prescriptions: Warfarin Sodium [Coumadin] 5 mg PO QHS #30 tablet Enoxaparin Sodium [Lovenox] 100 mg SQ Q12H 3 Days #5 syr Metformin HCl 500 mg PO BID 30 Days #120 tablet Home Medications: Ambulatory Orders Atorvastatin Calcium [Lipitor] 40 mg PO QHS 01/11/17 [Last Taken Unknown] Lisinopril [Zestril] 5 mg PO DAILY 01/11/17 [Last Taken Unknown] Enoxaparin Sodium [Lovenox] 100 mg SQ Q12H 3 Days #5 syr 01/13/17 [Last Taken Unknown] Warfarin Sodium [Coumadin] 5 mg PO QHS #30 tablet 01/13/17 [Last Taken Unknown] Metformin HCl 500 mg PO BID 30 Days #120 tablet 01/14/17 [Last Taken Unknown] Discharge Plan - Discharge Instructions Activity at Discharge: Increase Activity as Tolerated Diet at Discharge: Other (follow diet restriction for coumadin use) Instructions: Pulmonary Embolism (DC) Quality Measures - Quality Measures Quality Measures: Advance Directives, Documentation of Current Medications in Medical Record, Elder Maltreatment Screen and Follow-Up Plan, Screening for High Blood Pressure and F/U Documented - Current Medications Quality Measure: Measure #130: Documentation of Current Medications Documentation of Current Medications: <Current Medications Documented/Reviewed> [G8427] - Blood Pressure Screening Quality Measure: Screening for High Blood Pressure and Follow-Up Documented Does Patient Have Any of the Following: No Blood Pressure Classification: Pre-Hypertensive BP Reading Systolic Measurement: 120 Diastolic Measurement: 88 Screening for High Blood Pressure: < Pre-Hypertensive BP, F/U Documented > [ G8950] Pre-Hypertensive Follow-up Interventions: Follow-up with rescreen every year., Referral to alternative/primary care provider. - Advance Directives Quality Measure: Measure #47: Care Plan Advance Directives Established: Yes Advance Directives Information Provided To Patient: No Advance Directives on File: No Living Will: Yes Power of Tumbling Machine Operator: Yes Power of Tumbling Machine Operator Name: Vicki Moss, torsten Advance Care Planning: <Care Plan/Decision Maker Documented; Discussed & Documented> [1123F] - Elder Abuse Suspicion Index Screening: Elder Abuse Suspicion Index Screening Rely on people for bathing, dressing, shopping, banking, etc: No Prevented from getting food, clothes, medication, etc: No Made to feel shamed or threatened by someone: No Forced to sign papers or use money against will: No Feel afraid, touched in ways not wanted or hurt physically: No Poor eye contact, withdrawn, malnourished, cuts or bruises: No Screening Result: Negative result EASI Reference Information: Deann SCHAFFER, Tu C, Mike D, Felipe Anand.Development and validation of a tool to assist physicians identification of elder abuse: The Elder Abuse Suspicion Index (EASI ). Journal of Elder Abuse and Neglect, 2008; 20 (3): 276-300. - Elder Maltreatment Screen Quality Measures: Elder Maltreatment Screen and Follow-Up Plan Elder Maltreatment Screen: <Negative, No Follow-Up Plan Required> [G4267]
[2017-01-13] MEDS: LISINOPRIL 5 MG TABLET PO SCH (10:56)
== END 2017-01-13 11:00 | disposition home or self-care (01) | DRG 176 ==
LOC: ER 14:18 → MEDSURG 18:49
PROVIDERS: ADMIT Internal Medicine; ATTEND Internal Medicine
DX: I26.99 Other pulmonary embolism without acute cor pulmonale (principal); E11.9 Type 2 diabetes mellitus without complications; Z79.84 Long term (current) use of oral hypoglycemic drugs; I10 Essential (primary) hypertension; E78.00 Pure hypercholesterolemia, unspecified; Z85.51 Personal history of malignant neoplasm of bladder; Z79.01 Long term (current) use of anticoagulants
CPT/HCPCS: 93041; 99285 ×2; 96372; 82550; 85025; 85730; 85610; 82553; 80048; 80053; 84484; 85379; 83880; 71020; 71275; 93005; 93010; Q9967; 80061; 83036; 90670; 90686; 93306; 99223; 99239; J1650

== ENCOUNTER 2017-08-18 06:05 | Emergency (ER) | payer MEDICARE ==
[2017-08-18] MEDS ORDERED: HYDROCODONE/APAP 5/325MG TABLET PO ONE (06:20)
--- NOTE | 2017-08-18 06:23 | Emergency Department Record ---
History of Present Illness - General Chief complaint: Dental Stated complaint: TOOTH PAIN AFTER ROOT CANAL Time Seen by Provider: 08/18/17 06:20 Source: Patient Mode of Arrival: Ambulatory Limitations: No limitations - History of Present Illness Initial comments: 72 yo female presents to ED for evaluation of post-procedural dental pain symptoms following a root canal procedure 48 hours ago. Patient describes her pain symptoms as "burning", has been alternating Tylenol and Motrin without significant improvement in her symptoms. Patient denies difficulty swallowing or dental/tongue swelling symptoms. Patient also reports sore throat symptoms. MD complaint: Tooth pain Onset/Timin -: Days(s) Location: Tooth # Consistency: Getting worse Improves with: None Worsens with: None - Related Data Previous Rx's Medication Instructions Recorded Hydrocodone/APAP 5/325Mg [[place] 1 each PO Q6H PRN #9 tab 08/18/17 5Mg/325Mg] Allergies Allergy/AdvReac Type Severity Reaction Status Date / Time No Known Drug Allergies Allergy Verified 08/18/17 06:06 Travel Screening - Travel/Exposure Within Last 30 Days Have you traveled within the last 30 days?: No - Travel Symptoms Symptom Screening: None Review of Systems Constitutional: Denies: Chills, Fever, Malaise, Night sweats Eyes: Denies: Eye discharge, Eye pain ENT: Reports: Dental pain. Denies: Congestion, Ear pain Respiratory: Denies: Cough, Dyspnea Cardiovascular: Denies: Chest pain, Dyspnea on exertion Endocrine: Denies: Fatigue, Heat or cold intolerance Gastrointestinal: Denies: Abdominal pain, Nausea, Vomiting Genitourinary: Denies: Incontinence, Retention Musculoskeletal: Denies: Arthralgia, Back pain Skin: Denies: Bruising, Change in color Neurological: Denies: Abnormal gait, Confusion, Headache, Seizure Psychiatric: Denies: Anxiety Hematological/Lymphatic: Denies: Anemia, Blood Clots Past Medical History - SOCIAL HISTORY Smoking Status: Never smoker Alcohol Use: None Drug Use: None - RESPIRATORY Hx Respiratory Disorders: Yes Hx Sleep Apnea: Yes Hx of CPAP: Yes - CARDIOVASCULAR Hx Cardio Disorders: Yes Hx Hypertension: Yes Comment:: high cholesterol - NEURO Hx Neuro Disorders: No - GI Hx GI Disorders: Yes Hx Abdominal Pain: Yes Hx Irritable Bowel: Yes - Hx Genitourinary Disorders: Yes Hx Bladder Problem: Yes (tumor) - ENDOCRINE Hx Endocrine Disorders: Yes Hx Diabetes: Yes (pre-diabetic) Hx Thyroid Disease: No Comment:: diet and exercise - MUSCULOSKELETAL Hx Musculoskeletal Disorders: Yes Hx Arthritis: Yes (primarily hands) - PSYCH Hx Psych Problems: No - HEMATOLOGY/ONCOLOGY Hx Hematology/Oncology Disorders: No Hx Cancer: Yes (bladder maybe) Family Medical History Any Significant Family History?: Yes Hx Heart Disease: Father, Mother Physical Exam - General General Appearance: Alert, Oriented x3, Cooperative, Mild distress Limitations: No limitations - Head Head exam: Atraumatic, Normocephalic, Normal inspection Head exam detail: negative: Abrasion, Contusion, Valle's sign, General tenderness, Hematoma, Laceration - Eye Eye exam: Normal appearance. negative: Conjunctival injection, Periorbital swelling, Periorbital tenderness, Scleral icterus - ENT Ear exam: negative: Auricular hematoma, Auricular trauma Nasal Exam: negative: Active bleeding, Discharge, Dried blood, Foreign body Mouth exam: negative: Drooling, Laceration, Muffled voice, Tongue elevation Teeth exam: Dental tenderness #. negative: Dental caries, Fractured tooth #, Gingival enlargement Image of Mouth/Teeth: 1 - Dental tenderness following root canal, no gingival swelling is present. - Neck Neck exam: Normal inspection. negative: Meningismus, Tenderness - Respiratory Respiratory exam: Normal lung sounds bilaterally. negative: Rales, Respiratory distress, Rhonchi, Stridor - Cardiovascular Cardiovascular Exam: Regular rate, Normal rhythm, Normal heart sounds - GI/Abdominal GI/Abdominal exam: Soft. negative: Rebound, Rigid, Tenderness (*-+) - Rectal Rectal exam: Deferred - exam: Deferred - Extremities Extremities exam: Normal inspection. negative: Calf tenderness, Pedal edema, Tenderness - Back Back exam: Denies: CVA tenderness (R), CVA tenderness (L) - Neurological Neurological exam: Alert, Normal gait, Oriented X3 - Psychiatric Psychiatric exam: Normal affect, Normal mood - Skin Skin exam: Normal color. negative: Abrasion Type of lesion: negative: abrasion Course Vital Signs 08/18/17 06:11 Temperature 99 F Pulse Rate [ 70 Pulse Ox Probe] Respiratory 16 Rate Blood Pressure 176/93 [Left Arm] Pulse Ox 95 - Reevaluation(s) Reevaluation #1: 08/18/17 06:28 Patient was seen and examined, there does not appear to be a clear indication for antibiotics based on my examination. Will initiate analgesia with [place] (#9) as needed with instructions to call her oral surgeon for further recommendations. Patient agrees with the plan of care as discussed. Disposition Disposition: Discharge Clinical Impression: Post-op pain Disposition: Home, Self-Care Condition: (2) Stable Instructions: Pain Management After Surgery (GEN) Additional Instructions: Return to ED if your symptoms worsen or if you have any concerns. [place] as directed. Do not take with Tylenol. Follow-up with your family doctor in 3-5 days as directed. Prescriptions: Hydrocodone/APAP 5/325Mg [[place] 5Mg/325Mg] 1 each PO Q6H PRN #9 tab PRN Reason: Pain - Moderate (5-7) Forms: Patient Portal Access Time of Disposition: 06:21 Quality - Quality Measures Quality Measures: N/A - Blood Pressure Screening Does Patient Have Any of the Following: No Blood Pressure Classification: Hypertensive Reading Systolic Measurement: 176 Diastolic Measurement: 93 Screening for High Blood Pressure: < First Hypertensive BP, F/U Documented > [ G8950] First Hypertensive Follow-up Interventions: Referral to alternative/primary care provider.
== END 2017-08-18 06:52 | disposition home or self-care (01) ==
LOC: ER 06:05
DX: K08.89 Other specified disorders of teeth and supporting structures (principal); E78.00 Pure hypercholesterolemia, unspecified; Y84.8 Other medical procedures as the cause of abnormal reaction of the patient, or of later complication, without mention of misadventure at the time of the procedure
CPT/HCPCS: 99282

== ENCOUNTER 2017-10-07 05:46 | Emergency (ER) | payer MEDICARE ==
--- NOTE | 2017-10-07 06:04 | Emergency Department Record ---
History of Present Illness - General Chief complaint: Female Urogenital Problem Stated complaint: FREQUENT URINATION Time Seen by Provider: 10/07/17 05:47 Source: Patient Mode of Arrival: Ambulatory Limitations: No limitations - History of Present Illness Initial comments: 72 yo female presents to ED for evaluation of urinary frequency that began last night. Patient denies fevers, chills, or flank pain symptoms. Patient denies abdominal pain symptoms. Patient does report a history of DM. MD Complaint: Dysuria Onset/Timin -: Hour(s) Radiation: Non-radiating Severity: Moderate Severity scale (1-10): 5 Quality: Burning Consistency: Intermittent Improves with: None Worsens with: Urination Associated Symptoms: Dysuria - Related Data Previous Rx's Medication Instructions Recorded Nitrofurantoin Bertie [Macrobid] 100 mg PO BID #13 capsule 10/07/17 Allergies Allergy/AdvReac Type Severity Reaction Status Date / Time No Known Drug Allergies Allergy Verified 10/07/17 05:56 Travel Screening - Travel/Exposure Within Last 30 Days Have you traveled within the last 30 days?: No - Travel/Exposure Within Last Year Have you traveled outside the [place] in the last year?: No - Travel Symptoms Symptom Screening: None Review of Systems Constitutional: Denies: Chills, Fever, Malaise, Night sweats Eyes: Denies: Eye discharge, Eye pain ENT: Denies: Congestion, Ear pain, Epistaxis Respiratory: Denies: Cough, Dyspnea Cardiovascular: Denies: Chest pain, Dyspnea on exertion Endocrine: Denies: Fatigue, Heat or cold intolerance Gastrointestinal: Denies: Abdominal pain, Nausea, Vomiting Genitourinary: Reports: Dysuria. Denies: Incontinence, Retention Musculoskeletal: Denies: Arthralgia, Back pain, Gout, Joint swelling Skin: Denies: Bruising, Change in color Neurological: Denies: Abnormal gait, Confusion, Headache, Seizure Psychiatric: Denies: Anxiety Hematological/Lymphatic: Reports: Easy bleeding, Easy bruising. Denies: Anemia , Blood Clots Past Medical History - SOCIAL HISTORY Smoking Status: Never smoker Alcohol Use: None Drug Use: None - RESPIRATORY Hx Respiratory Disorders: Yes Hx Sleep Apnea: Yes Hx of CPAP: Yes - CARDIOVASCULAR Hx Cardio Disorders: Yes Hx Hypertension: Yes Comment:: high cholesterol - NEURO Hx Neuro Disorders: No - GI Hx GI Disorders: Yes Hx Abdominal Pain: Yes Hx Irritable Bowel: Yes - Hx Genitourinary Disorders: Yes Hx Bladder Problem: Yes (tumor) - ENDOCRINE Hx Endocrine Disorders: Yes Hx Diabetes: Yes (pre-diabetic) Hx Thyroid Disease: No Comment:: diet and exercise - MUSCULOSKELETAL Hx Musculoskeletal Disorders: Yes Hx Arthritis: Yes (primarily hands) - PSYCH Hx Psych Problems: No - HEMATOLOGY/ONCOLOGY Hx Hematology/Oncology Disorders: No Hx Cancer: No Family Medical History Any Significant Family History?: No Hx Heart Disease: Father, Mother Physical Exam - General General Appearance: Alert, Oriented x3, Cooperative, Mild distress Limitations: No limitations - Head Head exam: Atraumatic, Normocephalic, Normal inspection Head exam detail: negative: Abrasion, Contusion, Valle's sign, General tenderness, Hematoma, Laceration - Eye Eye exam: Normal appearance. negative: Conjunctival injection, Periorbital swelling, Periorbital tenderness, Scleral icterus - ENT Ear exam: negative: Auricular hematoma, Auricular trauma Nasal Exam: negative: Active bleeding, Discharge, Dried blood, Foreign body Mouth exam: negative: Drooling, Laceration, Muffled voice, Tongue elevation - Neck Neck exam: Normal inspection. negative: Meningismus, Tenderness - Respiratory Respiratory exam: Normal lung sounds bilaterally. negative: Rales, Respiratory distress, Rhonchi, Stridor - Cardiovascular Cardiovascular Exam: Regular rate, Normal rhythm, Normal heart sounds - GI/Abdominal GI/Abdominal exam: Soft. negative: Rebound, Rigid, Tenderness - Rectal Rectal exam: Deferred - exam: Deferred - Extremities Extremities exam: Normal inspection. negative: Pedal edema, Tenderness - Back Back exam: Denies: CVA tenderness (R), CVA tenderness (L) - Neurological Neurological exam: Alert, Normal gait, Oriented X3 - Psychiatric Psychiatric exam: Normal affect, Normal mood - Skin Skin exam: Normal color. negative: Abrasion Type of lesion: negative: abrasion Course Vital Signs 10/07/17 10/07/17 05:51 05:54 Temperature 98.9 F Pulse Rate [ 75 Pulse Ox Probe] Respiratory 20 Rate Blood Pressure 144/80 [Left Arm] Pulse Ox 95 - Reevaluation(s) Reevaluation #1: 10/07/17 06:39 UA reviewed: RBCs: TNTC WBCs: >50 Epis: 3-6 Bacteria: 4+ History and laboratory results appear c/w UTI. Will initiate Macrobid as this will not interact with her Coumadin. Patient was updated on all results and appears stable for discharge at this time. Disposition Disposition: Discharge Clinical Impression: UTI (urinary tract infection) Qualifiers: Urinary tract infection type: acute cystitis Hematuria presence: with hematuria Qualified Code(s): N30.01 - Acute cystitis with hematuria Disposition: Home, Self-Care Condition: (2) Stable Instructions: Urinary Tract Infection in Women (ED) Additional Instructions: Return to ED if your symptoms worsen or if you have any concerns. Macrobid as directed. Follow-up with your family doctor in 3-5 days as directed. Prescriptions: Nitrofurantoin Bertie [Macrobid] 100 mg PO BID #13 capsule Forms: Patient Portal Access Time of Disposition: 06:40 Quality - Quality Measures Quality Measures: N/A - Blood Pressure Screening Does Patient Have Any of the Following: Active Dx of HTN Blood Pressure Classification: Pre-Hypertensive BP Reading Systolic Measurement: 144 Diastolic Measurement: 80 Screening for High Blood Pressure: Patient Exclusion, Hx of HTN [G9744]
[2017-10-07 06:33] LABS: URINE BILIRUBIN SMALL (NEGATIVE); URINE BLOOD LARGE (NEGATIVE); URINE GLUCOSE (UA) NEGATIVE (NEGATIVE); URINE KETONE NEGATIVE (NEGATIVE); URINE LEUKOCYTE ESTERASE MODERATE (NEGATIVE); URINE NITRITE POSITIVE (NEGATIVE)
[2017-10-07 06:35] LABS: URINE APPEARANCE CLOUDY; URINE COLOR BROWN; URINE PROTEIN 300 mg/dL (NEGATIVE)
[2017-10-07] MEDS ORDERED: NITROFURANTOIN MONO 100 MG CAPSULE PO ONE (06:38)
[2017-10-07 06:39] LABS: URINE BACTERIA 4+; URINE WBC >50 (0-2/hpf)
== END 2017-10-07 06:48 | disposition home or self-care (01) ==
LOC: ER 05:46
DX: N30.01 Acute cystitis with hematuria (principal); I10 Essential (primary) hypertension
CPT/HCPCS: 81001; 99282

== ENCOUNTER 2019-01-16 12:28 | Day surgery (SDC) | payer MEDICARE, OTHER ==
[2019-01-16] MEDS ORDERED: LIDOCAINE 2% MDV (20MG/ML) 20ML VIAL IV ONE (12:29)
[2019-01-16] MEDS ORDERED: PROPOFOL 10 MG/ML VIAL IV ONE (12:29)
--- NOTE | 2019-01-16 15:20 | Operative Note ---
OPERATION: COLONOSCOPY with cold snare polypectomy x2. PREOPERATIVE DIAGNOSIS: History of polyps. POSTOPERATIVE DIAGNOSES: 1. Colon polyps. 2. Sigmoid diverticulosis. PREPARATION QUALITY: Good. ESTIMATED BLOOD LOSS: Minimum. SPECIMENS: Transverse colon and sigmoid polyps. COMPLICATIONS: None apparent. PROCEDURE: After informed consent was obtained from the patient, she was placed in the left lateral decubitus position in the endoscopy suite, sedated and monitored by the department of anesthesia. Digital rectal examination was unremarkable. A well-lubricated [id number] colonoscope was inserted into the rectum and advanced to the cecum. The cecum and cecal bulb were noted by the ileocecal valve and appendiceal orifice. Preparation quality was good at best. The cecum, cecal bulb, and ascending colon were unremarkable. The transverse colon revealed a 5 mm polyp removed with a cold snare. This was retrieved. The remainder of the transverse colon and descending colon were unrevealing. The sigmoid colon did reveal a 4-5 mm sessile polyp removed with a cold snare. There were moderate sigmoid diverticular changes noted as well. The rectum was unremarkable in forward and J-turn views. The endoscope was straightened, the rectal ampulla deflated, and the endoscope was removed. RECOMMENDATIONS: The patient should follow a high-fiber diet and resume her medications. She should undergo repeat exam in 3-5 years pending tissue histology. As always, thank you for allowing me to participate in the healthcare of your patients. DREA
== END 2019-01-16 14:30 | disposition home or self-care (01) ==
LOC: HOP 12:28
PROVIDERS: ATTEND Internal Medicine Gastroenterology
DX: Z12.11 Encounter for screening for malignant neoplasm of colon (principal); Z86.010 Personal history of colon polyps; D12.5 Benign neoplasm of sigmoid colon; D12.3 Benign neoplasm of transverse colon; K57.30 Diverticulosis of large intestine without perforation or abscess without bleeding; E11.9 Type 2 diabetes mellitus without complications; I10 Essential (primary) hypertension; E78.00 Pure hypercholesterolemia, unspecified